=== PATIENT | female | born 1985 | race Caucasian/White ===

== ENCOUNTER 2018-08-01 18:14 | Inpatient (IN) | payer OTHER ==
[~2018-08-01] VITALS: Ht 172.7 cm; Wt 75.4 kg
[2018-08-01] MEDS ORDERED: ACETAMINOPHEN 325 MG TAB PO NR (18:35)
--- NOTE | 2018-08-01 18:56 | NUR ---
VERBAL REPORT GIVEN TO PADMINI SANTACRUZ.
[2018-08-01 19:00] LABS: BASOPHILS # (AUTO) 0.1 (0.0-0.1); BASOPHILS % 0.3 % (0.0-1.0); HEMATOCRIT 38.4 % (34.2-44.1); HEMOGLOBIN 12.3 g/dL (12.0-16.0); LYMPHOCYTES # (AUTO) 0.4 (1.0-3.2); LYMPHOCYTES % 2.6 % (18.0-39.1); MEAN CORPUSCULAR VOLUME 90.6 fL (81-99); MONOCYTES # (AUTO) 0.7 (0.2-0.8); MONOCYTES % 4.4 % (4.4-11.3); NEUTROPHILS # (AUTO) 14.4 (2.1-6.9); NEUTROPHILS % 92.3 % (38.7-80.0); PLATELET COUNT 247 x10e3/uL (140-360); RED BLOOD COUNT 4.24 x10e6/uL (3.6-5.1); RED CELL DISTRIBUTION WIDTH 12.3 % (11.7-14.4)
[2018-08-01 19:05] LABS: CLARITY,URINE CLEAR (CLEAR); COLOR,URINE YELLOW (YELLOW)
[2018-08-01 19:06] LABS: BILIRUBIN,URINE NEGATIVE (NEGATIVE); KETONES,URINE NEGATIVE (NEGATIVE); LEUKOCYTE ESTERASE ,URINE NEGATIVE (NEGATIVE); NITRITE,URINE NEGATIVE (NEGATIVE); PROTEIN,URINE DIPSTICK NEGATIVE (NEGATIVE); URINE UROBILINOGEN 0.2 mg/dL (0.2 - 1)
[2018-08-01 19:17] LABS: BACTERIA,URINE MODERATE /HPF; EPITHELIAL CELLS,URINE RARE /LPF; RBC,URINE 0-5 /HPF (0-5); WBC,URINE (MAN) 0-5 /HPF (0-5)
[2018-08-01 19:18] LABS: ALANINE AMINOTRANSFERASE 11 IU/L (0-55); ALBUMIN 3.9 g/dL (3.5-5.0); ALBUMIN/GLOBULIN RATIO 1.2 (0.8-2.0); ALKALINE PHOSPHATASE 89 IU/L (40-150); ANION GAP 15.6 mmol/L (8-16); BLOOD UREA NITROGEN 14 mg/dL (7-26); BUN/CREATININE RATIO 18 (6-25); CALCIUM 9.3 mg/dL (8.4-10.2); CARBON DIOXIDE 25 mmol/L (22-29); CHLORIDE 100 mmol/L (98-107); CREATININE, SERUM 0.77 mg/dL (0.57-1.11); EST GLOMERULAR FILTRATION RATE > 60 ML/MIN (60-); GLUCOSE 112 mg/dL (74-118); POTASSIUM 3.6 mmol/L (3.5-5.1); SODIUM 137 mmol/L (136-145)
[2018-08-01] MEDS ORDERED: SODIUM CHLORIDE 0.9% 1000ML 1,000 ML IV SCH (19:30)
--- NOTE | 2018-08-01 20:08 | Diagnostic Imaging Report ---
EXAMINATION: PA and lateral views of the chest. COMPARISON: None CLINICAL HISTORY: Chest pain, fever, cough, congestion, phlegm DISCUSSION: Lines/tubes: None. Lungs: Lungs are well-inflated. Right middle lobe airspace opacity, with silhouetting of the right heart border. Patchy opacity in the right infrahilar region best seen in the lateral view. Rest of the lungs is clear. Pleura: There is no pleural effusion or pneumothorax. Heart and mediastinum: Cardiomediastinal silhouette is unremarkable. Pulmonary vasculature is normal. Bones and soft tissues: No acute bony abnormalities. IMPRESSION: 1. Findings consistent with right middle lobe pneumonia, in the appropriate clinical setting. 2. Patchy opacity in the right infrahilar region may reflect pneumonia in the right lower lobe or atelectasis. Signed by: Dr. Mikhail Tamayo M.D. on 08/01/2018 8:05 PM
[2018-08-01] MEDS: SODIUM CHLORIDE 0.9% 1000ML 1,000 ML IV SCH (21:32)
[2018-08-01] MEDS: CEFTRIAXONE SOD 1 GM VIAL IV SCH (21:32)
[2018-08-01] MEDS: AZITHROMYCIN 500MG/NS 250 ML 250 ML IV SCH (21:32)
[2018-08-01] MEDS ORDERED: ONDANSETRON HCL INJ 2 MG/ML VIAL IV PRN (22:15)
--- OUTSIDE RECORDS SUMMARY | 2018-08-01 22:19 | XMS REPORT ---
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 Allergies, Adverse Reactions, Alerts This patient has no known allergies or adverse reactions. Medications This patient has no known medications. Results Test Description Test Time Test Comments Text Results Atomic Results Result Comments CHEST 2 VIEWS 2018-08-01 20:03:00 [place] [address] Patient Name: JORDAN CHUA MR #: [id number] : 1985 Age/Sex: 33/F Req #: [id number] Adm Physician: Ordered by: EULALIO GARCIA MD Report #: [id number] Location: ER Room/Bed: Procedure: [id number] DX/CHEST 2 VIEWS Exam Date: Exam Time: REPORT STATUS: Signed EXAMINATION: PA and lateral views of the chest. COMPARISON: None CLINICAL HISTORY: Chest pain, fever, cough, congestion, phlegm DISCUSSION: Lines/tubes: None. Lungs: Lungs are well-inflated. Right middle lobe airspace opacity, with silhouetting of the right heart border. Patchy opacity in the right infrahilar region best seen in the lateral view. Rest of the lungs is clear. Pleura: There is no pleural effusion or pneum othorax. Heart and mediastinum: Cardiomediastinal silhouette is unremarkable. Pulmonary vasculature is normal. Bones and soft tissues: No acute bony abnormalities. IMPRESSION: 1. Findings consistent with right middle lobe pneumonia, in the appropriate clinical setting. 2. Patchy opacity in the right infrahilar region may reflect pneumonia in the right lower lobe or atelectasis. Signed by: Dr. Shu Tamayo M.D. on 08/01/2018 8:05 PM Dictated By: SHU TAMAYO MD 04 Transcribed By: LUZ ELENA on 08/01/182004 COPY TO: EULALIO GARCIA MD
[2018-08-01 22:45] VITALS: BP 117/72
--- NOTE | 2018-08-01 22:50 | NUR ---
received pt from the ER to room 294, AAOx4, able to verbalize needs, pt noted with productive cough, phlegm light green in color and thin, resp are even and unlabored, no c/o pain or discomfort, iv to left ac patent and intact with NS @125, skin intact, ambulates by self with steady gait, at the bedside, bed in lowest position and call light in reach, instructed pt to call if assistance is needed
[2018-08-01] MEDS: ALBUTEROL SULF 0.083% NEB SOLN 3 ML NEB NEB SCH (23:30)
[2018-08-02] VITALS: BP 117/72
[2018-08-02] MEDS: SODIUM CHLORIDE 0.9% 1000ML 1,000 ML IV SCH ×2 (02:13→10:10)
[2018-08-02] MEDS: IPRATROPIUM BROMIDE 0.02% 2.5 ML NEB NEB SCH ×2 (02:30→07:00)
[2018-08-02] MEDS: ALBUTEROL SULF 0.083% NEB SOLN 3 ML NEB NEB SCH ×2 (02:30→07:00)
[2018-08-02 04:00] VITALS: BP 105/59
[2018-08-02] MEDS: ACETAMINOPHEN 325 MG TAB PO PRN ×3 (05:15→22:07)
[2018-08-02 05:45] LABS: BASOPHILS % 0.3 % (0.0-1.0); HEMATOCRIT 32.5 % (34.2-44.1); HEMOGLOBIN 10.5 g/dL (12.0-16.0); LYMPHOCYTES % 11.3 % (18.0-39.1); MEAN CORPUSCULAR HEMOGLOBIN 29.8 pg (28-32); MEAN CORPUSCULAR HGB CONC 32.3 g/dL (31-35); MEAN CORPUSCULAR VOLUME 92.3 fL (81-99); MONOCYTES # (AUTO) 0.8 (0.2-0.8); MONOCYTES % 8.3 % (4.4-11.3); NEUTROPHILS # (AUTO) 7.3 (2.1-6.9); NEUTROPHILS % 79.7 % (38.7-80.0); PLATELET COUNT 207 x10e3/uL (140-360); RED BLOOD COUNT 3.52 x10e6/uL (3.6-5.1); RED CELL DISTRIBUTION WIDTH 12.4 % (11.7-14.4)
[2018-08-02 05:58] LABS: ALANINE AMINOTRANSFERASE 8 IU/L (0-55); ALBUMIN 2.9 g/dL (3.5-5.0); ALKALINE PHOSPHATASE 68 IU/L (40-150); ANION GAP 12.7 mmol/L (8-16); BLOOD UREA NITROGEN 10 mg/dL (7-26); BUN/CREATININE RATIO 15 (6-25); CALCIUM 8.5 mg/dL (8.4-10.2); CARBON DIOXIDE 25 mmol/L (22-29); CHLORIDE 107 mmol/L (98-107); CREATININE, SERUM 0.68 mg/dL (0.57-1.11); EST GLOMERULAR FILTRATION RATE > 60 ML/MIN (60-); GLUCOSE 84 mg/dL (74-118); POTASSIUM 3.7 mmol/L (3.5-5.1); SODIUM 141 mmol/L (136-145)
[2018-08-02 06:50] LABS: CREATINE KINASE MB 0.5 ng/mL (0-5.0)
--- NOTE | 2018-08-02 07:30 | NUR ---
PT UP IN BED AWAKE,PAIN LEVEL 3 TO LT SIDE,NO SOB NOTED.
[2018-08-02 08:59] VITALS: BP 114/76
[2018-08-02 12:00] VITALS: BP 117/80
--- NOTE | 2018-08-02 15:35 | NUR ---
PT UP IN [place] AMBULATING,TOLERATED WELL.PAIN LEVEL 4 TO LT SIDE
[2018-08-02 15:38] LABS: CREATINE KINASE MB 0.5 ng/mL (0-5.0)
--- NOTE | 2018-08-02 18:02 | NUR ---
PT IN BED RESTING ,NO S/S DISCOMFORT.
[2018-08-02 20:00] VITALS: BP 104/67
[2018-08-02] MEDS: AZITHROMYCIN 500MG/NS 250 ML 250 ML IV SCH (20:44)
[2018-08-02] MEDS: CEFTRIAXONE SOD 1 GM VIAL IV SCH (20:44)
[2018-08-02] MEDS: ALBUTEROL SULF 0.083% NEB SOLN 3 ML NEB NEB PRN (21:00)
[2018-08-03] VITALS: BP 106/55
[2018-08-03 04:00] VITALS: BP 114/63
[2018-08-03 06:01] LABS: BASOPHILS % 0.6 % (0.0-1.0); EOSINOPHILS # (AUTO) 0.1 (0.0-0.4); EOSINOPHILS % 1.5 % (0.0-6.0); HEMATOCRIT 32.3 % (34.2-44.1); HEMOGLOBIN 10.4 g/dL (12.0-16.0); LYMPHOCYTES # (AUTO) 1.2 (1.0-3.2); LYMPHOCYTES % 24.8 % (18.0-39.1); MEAN CORPUSCULAR HEMOGLOBIN 30.7 pg (28-32); MEAN CORPUSCULAR HGB CONC 32.2 g/dL (31-35); MEAN CORPUSCULAR VOLUME 95.3 fL (81-99); MONOCYTES # (AUTO) 0.4 (0.2-0.8); MONOCYTES % 7.3 % (4.4-11.3); NEUTROPHILS # (AUTO) 3.1 (2.1-6.9); NEUTROPHILS % 65.4 % (38.7-80.0); PLATELET COUNT 211 x10e3/uL (140-360); RED BLOOD COUNT 3.39 x10e6/uL (3.6-5.1); RED CELL DISTRIBUTION WIDTH 12.4 % (11.7-14.4)
[2018-08-03 06:02] LABS: ANION GAP 12.2 mmol/L (8-16); BLOOD UREA NITROGEN 8 mg/dL (7-26); BUN/CREATININE RATIO 12 (6-25); CARBON DIOXIDE 28 mmol/L (22-29); CHLORIDE 107 mmol/L (98-107); CREATININE, SERUM 0.66 mg/dL (0.57-1.11); EST GLOMERULAR FILTRATION RATE > 60 ML/MIN (60-); GLUCOSE 81 mg/dL (74-118); POTASSIUM 4.2 mmol/L (3.5-5.1); SODIUM 143 mmol/L (136-145)
[2018-08-03] MEDS: ACETAMINOPHEN 325 MG TAB PO PRN (06:41)
--- NOTE | 2018-08-03 07:25 | NUR ---
RECD PT IN BED RESTING C/O LT SIDE PAIN LEVEL 6 ,PAGED DR CARRENO,RE; PAIN MEDICATION.
[2018-08-03] MEDS: ALBUTEROL SULF 0.083% NEB SOLN 3 ML NEB NEB PRN ×2 (08:00→19:15)
[2018-08-03 08:04] VITALS: BP 123/74
--- NOTE | 2018-08-03 08:15 | NUR ---
DR CARRENO HERE ORDERS WRITTEN.
[2018-08-03] MEDS ORDERED: SODIUM CHLORIDE FLUSH 10 ML SYR INJ PRN (09:45)
[2018-08-03] MEDS: IBUPROFEN 600 MG TAB PO PRN ×2 (10:00→18:12)
--- NOTE | 2018-08-03 10:00 | NUR ---
PT C/O PAIN LEVEL 6 TO LT RIBS MEDICATED
[2018-08-03 12:22] VITALS: BP 116/75
[2018-08-03 16:18] VITALS: BP 107/64
--- NOTE | 2018-08-03 17:33 | NUR ---
UNABLE TO DO BARIUM SWALLOW ,FLURO DOWN.PAGED DR CARRENO
--- NOTE | 2018-08-03 18:13 | NUR ---
PT UP IN BED C/O LT SIDE PAIN MEDICATED
--- NOTE | 2018-08-03 18:24 | NUR ---
SPOKE WITH DR CARRENO NO NEW ORDERS
[2018-08-03 20:00] VITALS: BP 126/73
[2018-08-03] MEDS: CEFTRIAXONE SOD 1 GM VIAL IV SCH (20:47)
[2018-08-03] MEDS: AZITHROMYCIN 500MG/NS 250 ML 250 ML IV SCH (20:47)
[2018-08-04 04:00] VITALS: BP 134/67
--- NOTE | 2018-08-04 06:21 | Diagnostic Imaging Report ---
EXAM: CHEST 2 VIEWS, PA and lateral INDICATION: Pneumonia COMPARISON: PA and lateral view the chest August 01, 2018 FINDINGS: LINES/TUBES: None LUNGS: Improving right middle lobe pneumonia. PLEURA: No effusions or pneumothorax. HEART AND MEDIASTINUM: Normal size and contour. BONES AND SOFT TISSUES: No acute findings. IMPRESSION: Improving right middle lobe pneumonia. Signed by: Dr. Fariha Trivedi M.D. on 08/04/2018 6:18 AM
[2018-08-04] MEDS ORDERED: PANTOPRAZOLE SOD 40 MG TABEC PO SCH (07:30)
[2018-08-04 07:52] VITALS: BP 104/61
--- NOTE | 2018-08-04 08:33 | NUR ---
PATIENT OFF OF THE UNIT PER WHEELCHAIR TO RADIOLOGY. PATIENT IS IN STABLE CONDITION WITH NO S/S OF RESPIRATORY DISTRESS.
--- NOTE | 2018-08-04 09:09 | NUR ---
PATIENT BACK ON THE UNIT PER WHEELCHAIR- PATIENT IS IN STABLE CONDITION WITH NO S/S OF RESPIRATORY DISTRESS AND IS ABLE TO EAT NOW.
[2018-08-04] MEDS ORDERED: CEFUROXIME250 MG PO (10:00)
[2018-08-04] MEDS ORDERED: PANTOPRAZOLE SO40 MG PO (10:01)
--- NOTE | 2018-08-04 10:51 | Diagnostic Imaging Report ---
PROCEDURE: BARIUM SWALLOW was performed with Sodium Carbonate and thick and thin barium. TECHNIQUE: OPERATORS: COMPARISON: Chest radiograph 08/04/2018. INDICATIONS: Not provided. FINDINGS: Swallow: The swallowing mechanism was grossly normal without evidence of aspiration. The esophagus was normally distensible and the mucosa was within normal limits. Esophageal motility was within normal limits. Gastroesophageal junction: There is no evidence of hiatal hernia. Reflux: Moderate inducible gastroesophageal reflux to the level of the mid esophagus. The visualized portion of the stomach and proximal small bowel are unremarkable. IMPRESSION: The swallowing mechanism was grossly normal. Normal appearance of the esophagus. Moderate inducible gastroesophageal reflux. Dictated by: CORDELIA LEONE M.D. on 08/04/2018 at 10:59 Electronically approved by: CORDELIA LEONE M.D. on 08/04/2018 at 10:59
[2018-08-04 11:22] VITALS: BP 108/64
[2018-08-04 16:00] VITALS: BP 103/76
--- NOTE | 2018-08-04 16:03 | Discharge Summary ---
DISCHARGE DIAGNOSES 1. Community-acquired pneumonia, improving. 2. Gastroesophageal reflux disease. Ms. Donahue is a very pleasant, 33-year-old lady who presented to the emergency department with complaints of a 2 to 3 week history of an upper respiratory infection that initially improved but then again worsened with intermittent cough and fever and on the day of admission shaking chills and temperature up to 103 degrees. The patient does not have any history of smoking and no history of asthma, but she has reflux symptoms. At the time of admission, she presented with a white cell count of 15,000 with a left shift, and the chest x-ray was consistent with a right middle lobe infiltrate. She was treated with a combination of ceftriaxone and azithromycin. With this combination, she became afebrile. The white count has normalized. Due to significant symptoms of gastroesophageal reflux disease, a barium swallow was requested. There is evidence of some reflux. She was started on a PPI. The patient has improved. She is tolerating the oral route. She is being discharged home in stable condition with prescription for cefuroxime axetil to take 250 mg twice a day for the next 10 days and a prescription for pantoprazole 40 mg daily in the morning. She is to follow up in the office 1 week after discharge. SATHISH CARRENO MD Job#: [id number]
--- NOTE | 2018-08-04 18:10 | NUR ---
PATIENT DISCHARGE HOME- PATIENT OFF THE UNIT AT 1751 PER WHEELCHAIR ACCOMPANIED BY RN TO THE FRONT LOBBY. PATIENT IS IN STABLE CONDITION WITH NO S/S OF RESPIRATORY DISTRESS. NO PAIN VOICED. IV REMOVED AT 1719 WITH TIP INTACT. DISCHARGE TEACHING, INSTRUCTIONS, AND MEDICATIONS GIVEN TO THE PATIENT. ALL PERSONAL ITEMS TAKEN WITH THE PATIENT AND HER MOTHER.
== END 2018-08-04 17:56 | disposition home or self-care (01) | DRG 194 ==
LOC: ER 18:14 → ERHOLD 22:17 → MED/SURG3 22:41
PROVIDERS: ADMIT Internal Medicine; ATTEND Internal Medicine
DX: J18.9 Pneumonia, unspecified organism (principal); N39.0 Urinary tract infection, site not specified; D72.829 Elevated white blood cell count, unspecified; I25.10 Atherosclerotic heart disease of native coronary artery without angina pectoris; K21.9 Gastro-esophageal reflux disease without esophagitis; J69.0 Pneumonitis due to inhalation of food and vomit; T18.120A Food in esophagus causing compression of trachea, initial encounter
CPT/HCPCS: 36415; 71046; 74220; 80048; 80053; 81001; 82550; 82553; 83605; 84484; 84702; 85025; 87040; 87086; 87400; 93005; 94640; 96374; 99284; J0456; J0696; J7030

== ENCOUNTER 2018-08-20 11:12 | Inpatient (IN) | payer OTHER ==
[~2018-08-20] VITALS: Ht 172.7 cm; Wt 73.1 kg
[~2018-08-20 11:12] MED LIST: CEFUROXIME250 MG PO; PANTOPRAZOLE SO40 MG PO
[2018-08-20] MEDS ORDERED: MORPHINE SULFATE INJ 4 MG/ML INJ IV NR (14:31)
[2018-08-20] MEDS ORDERED: SODIUM CHLORIDE 0.9% 1000ML 1,000 ML IV STA (14:31)
[2018-08-20] MEDS ORDERED: ONDANSETRON HCL INJ 2 MG/ML VIAL IV NR ×2 (14:31→17:49)
[2018-08-20 14:39] LABS: BASOPHILS # (AUTO) 0.1 (0.0-0.1); BASOPHILS % 0.4 % (0.0-1.0); EOSINOPHILS # (AUTO) 0.1 (0.0-0.4); EOSINOPHILS % 1.2 % (0.0-6.0); HEMATOCRIT 43.8 % (34.2-44.1); LYMPHOCYTES # (AUTO) 0.7 (1.0-3.2); LYMPHOCYTES % 6.3 % (18.0-39.1); MEAN CORPUSCULAR HEMOGLOBIN 28.7 pg (28-32); MEAN CORPUSCULAR VOLUME 89.9 fL (81-99); MONOCYTES # (AUTO) 0.7 (0.2-0.8); MONOCYTES % 6.1 % (4.4-11.3); NEUTROPHILS # (AUTO) 10.1 (2.1-6.9); NEUTROPHILS % 85.7 % (38.7-80.0); PLATELET COUNT 333 x10e3/uL (140-360); RED BLOOD COUNT 4.87 x10e6/uL (3.6-5.1); RED CELL DISTRIBUTION WIDTH 12.2 % (11.7-14.4)
[2018-08-20 14:44] LABS: INR 0.95; PARTIAL THROMBOPLASTIN TIME 28.1 seconds (23.8-35.5); PROTHROMBIN TIME 13.5 seconds (11.9-14.5)
[2018-08-20 14:54] LABS: ALANINE AMINOTRANSFERASE 22 IU/L (0-55); ALBUMIN 3.7 g/dL (3.5-5.0); ALKALINE PHOSPHATASE 104 IU/L (40-150); AMYLASE 64 U/L (25-125); ANION GAP 19.9 mmol/L (8-16); BLOOD UREA NITROGEN < 5 mg/dL (7-26); CALCIUM 8.3 mg/dL (8.4-10.2); CARBON DIOXIDE 23 mmol/L (22-29); CHLORIDE 99 mmol/L (98-107); CREATININE, SERUM 0.71 mg/dL (0.57-1.11); EST GLOMERULAR FILTRATION RATE > 60 ML/MIN (60-); GLUCOSE 90 mg/dL (74-118); LIPASE 11 U/L (8-78); POTASSIUM 3.9 mmol/L (3.5-5.1); SODIUM 138 mmol/L (136-145)
[2018-08-20 14:58] LABS: BUN/CREATININE RATIO 7 (6-25)
[2018-08-20] MEDS ORDERED: DIATRIZOATE MEGL/DIATRIZOA SOD 30 ML BTL PO ONE (15:06)
[2018-08-20 15:13] LABS: BILIRUBIN,URINE NEGATIVE (NEGATIVE); KETONES,URINE TRACE (NEGATIVE); LEUKOCYTE ESTERASE ,URINE NEGATIVE (NEGATIVE); NITRITE,URINE NEGATIVE (NEGATIVE); PROTEIN,URINE DIPSTICK NEGATIVE (NEGATIVE); URINE UROBILINOGEN 0.2 mg/dL (0.2 - 1)
[2018-08-20 15:18] LABS: CLARITY,URINE CLEAR (CLEAR); COLOR,URINE YELLOW (YELLOW); EPITHELIAL CELLS,URINE RARE /LPF; RBC,URINE 0-5 /HPF (0-5); WBC,URINE (MAN) 0-5 /HPF (0-5)
[2018-08-20] MEDS ORDERED: ACETAMINOPHEN 1000 MG/100 ML IV NR (15:45)
[2018-08-20] MEDS ORDERED: IOPAMIDOL 370 MG/ML 200 ML INFUS..BTL INJ ONE (16:47)
[2018-08-20] MEDS ORDERED: SODIUM CHLORIDE 0.9% 50ML 50 ML ONE (16:47)
--- NOTE | 2018-08-20 17:06 | Diagnostic Imaging Report ---
CT Abdomen And Pelvis with Intravenous Contrast INDICATION: Abdominal pain, nausea, vomiting, diarrhea TECHNIQUE: Thin collimation axial images obtained from the diaphragm to the level of the pubic symphysis following the uneventful administration of oral and of 100 cc of low osmolar, nonionic intravenous contrast. Dose reduction techniques used: Automated exposure control, adjustment of the mAs and/or kVp according to patient size, standardized low-dose protocol, and/or iterative reconstruction technique. RADIATION DOSE: Total DLP: 354.9 mGy*cm Estimated effective dose: (DLP x 0.015 x size factor) mSv CTDIvol has been reviewed. It is below the limits set by the Radiation Protocol Committee (RPC). COMPARISON: None. ABDOMEN FINDINGS: Lung Bases: Small focus of subsegmental atelectasis at the apex of the middle lobe. Visualized portion of the mediastinum is normal. Liver: Low attenuating lesion in segment 2 measures 1.7 x 2.0 cm with peripheral, discontinuous, nodular enhancement. A 5 mm low attenuating lesion in segment 2 is too small to characterize. A subcapsular low attenuating lesion in segment 4 is from a slip of diaphragm. Gallbladder: Present and appears normal. No biliary ductal dilatation. Pancreas: Normal attenuation without mass or ductal dilatation. Spleen: Normal in size. No evidence of mass.. Adrenal Glands: No evidence for mass. Kidneys: Right: Normal enhancement. No soft tissue mass. No hydronephrosis. Left: Normal enhancement. No soft tissue mass. No hydronephrosis. Lymph Nodes: No enlarged abdominal or retroperitoneal lymph nodes. Aorta: Normal in diameter PELVIS FINDINGS: Bowel: Stomach: Normal in caliber with normal wall thickness. Small Bowel: Normal in caliber with normal wall thickness. Large Bowel: Diffuse mural thickening of the entire colon and pericolonic inflammation. No dilatation. No diverticula. No intramural air Appendix: Collapsed and normal in appearance. Bladder: Underdistended but otherwise normal. The uterus contains an intrauterine device in appropriate position. No adnexal mass. Small amount of pelvic ascites. No loculated fluid collection. Bones: Unremarkable for age. Soft tissues: Unremarkable. IMPRESSION: 1. Diffuse colonic thickening consistent with colitis. No evidence of bowel obstruction. 2. Small amount of pelvic ascites. No abscess. 3. Dominant low attenuating hepatic lesion is suggestive of hemangioma. 4. IUD in appropriate position. Signed by: Dr. Scout Fox MD on 08/20/2018 5:03 PM
[2018-08-20] MEDS: SODIUM CHLORIDE 0.9% 1000ML 1,000 ML IV SCH (18:44)
[2018-08-20] MEDS: METRONIDAZOLE 500MG/NS 100ML 100 ML IV SCH ×2 (18:45→23:13)
[2018-08-20] MEDS ORDERED: PROMETHAZINE HCL (IM) 25 MG/ML VIAL IV PRN (19:15)
[2018-08-20] MEDS ORDERED: D5.45%NS/KCL 20MEQ 1,000 ML IV ONE (19:15)
[2018-08-20] MEDS ORDERED: MORPHINE SULFATE INJ 4 MG/ML INJ IV PRN (19:30)
[2018-08-20] MEDS: VANCOMYCIN 250MG/5ML ORAL SOLN PO SCH ×2 (20:30→23:13)
[2018-08-20] MEDS: ONDANSETRON HCL INJ 2 MG/ML VIAL IV PRN (20:43)
[2018-08-20] MEDS: MORPHINE SULFATE INJ 4 MG/ML INJ IV NR ×2 (20:43→20:45)
[2018-08-20 22:21] VITALS: BP 112/64
[2018-08-20 22:24] VITALS: BP 112/64
[2018-08-20 22:29] VITALS: BP 112/64
[2018-08-21] VITALS (8 sets, daily range): BP systolic 98–148; BP diastolic 57–78
[2018-08-21] MEDS: MORPHINE SULFATE INJ 4 MG/ML INJ IV PRN ×2 (01:29→09:47)
[2018-08-21] MEDS: ONDANSETRON HCL INJ 2 MG/ML VIAL IV PRN (01:30)
[2018-08-21 04:54] LABS: BASOPHILS # (AUTO) 0.1 (0.0-0.1); BASOPHILS % 0.9 % (0.0-1.0); EOSINOPHILS # (AUTO) 0.6 (0.0-0.4); EOSINOPHILS % 7.4 % (0.0-6.0); HEMATOCRIT 35.8 % (34.2-44.1); HEMOGLOBIN 11.3 g/dL (12.0-16.0); LYMPHOCYTES # (AUTO) 1.2 (1.0-3.2); MEAN CORPUSCULAR HEMOGLOBIN 28.5 pg (28-32); MEAN CORPUSCULAR HGB CONC 31.6 g/dL (31-35); MEAN CORPUSCULAR VOLUME 90.4 fL (81-99); MONOCYTES # (AUTO) 0.7 (0.2-0.8); MONOCYTES % 8.2 % (4.4-11.3); NEUTROPHILS # (AUTO) 5.4 (2.1-6.9); NEUTROPHILS % 68.2 % (38.7-80.0); PLATELET COUNT 266 x10e3/uL (140-360); RED BLOOD COUNT 3.96 x10e6/uL (3.6-5.1); RED CELL DISTRIBUTION WIDTH 12.4 % (11.7-14.4)
[2018-08-21 05:13] LABS: ANION GAP 14.5 mmol/L (8-16); BLOOD UREA NITROGEN 6 mg/dL (7-26); BUN/CREATININE RATIO 8 (6-25); CALCIUM 8.3 mg/dL (8.4-10.2); CARBON DIOXIDE 24 mmol/L (22-29); CHLORIDE 104 mmol/L (98-107); CREATININE, SERUM 0.77 mg/dL (0.57-1.11); EST GLOMERULAR FILTRATION RATE > 60 ML/MIN (60-); GLUCOSE 98 mg/dL (74-118); POTASSIUM 3.5 mmol/L (3.5-5.1); SODIUM 139 mmol/L (136-145)
[2018-08-21] MEDS: METRONIDAZOLE 500MG/NS 100ML 100 ML IV SCH ×3 (05:18→21:19)
[2018-08-21] MEDS: SODIUM CHLORIDE 0.9% 1000ML 1,000 ML IV SCH ×3 (05:18→21:19)
[2018-08-21] MEDS: VANCOMYCIN 250MG/5ML ORAL SOLN PO SCH ×3 (05:19→17:36)
[2018-08-21] MEDS ORDERED: HYDROCODONE/APAP 5MG-325MG TAB PO PRN (10:15)
[2018-08-21] MEDS ORDERED: INFLUENZA VIRUS VAC SPLIT INJ 0.5 ML SYR IM SCH (16:00)
[2018-08-21] MEDS ORDERED: ACETAMINOPHEN 325 MG TAB PO PRN (23:30)
[2018-08-22] VITALS (8 sets, daily range): BP systolic 88–114; BP diastolic 59–83
[2018-08-22 04:53] LABS: BASOPHILS # (AUTO) 0.1 (0.0-0.1); BASOPHILS % 0.9 % (0.0-1.0); EOSINOPHILS # (AUTO) 0.6 (0.0-0.4); EOSINOPHILS % 9.2 % (0.0-6.0); HEMATOCRIT 41.2 % (34.2-44.1); HEMOGLOBIN 12.6 g/dL (12.0-16.0); LYMPHOCYTES # (AUTO) 1.3 (1.0-3.2); MEAN CORPUSCULAR HEMOGLOBIN 28.1 pg (28-32); MEAN CORPUSCULAR HGB CONC 30.6 g/dL (31-35); MEAN CORPUSCULAR VOLUME 91.8 fL (81-99); MONOCYTES # (AUTO) 0.5 (0.2-0.8); NEUTROPHILS # (AUTO) 4.4 (2.1-6.9); NEUTROPHILS % 63.6 % (38.7-80.0); PLATELET COUNT 271 x10e3/uL (140-360); RED BLOOD COUNT 4.49 x10e6/uL (3.6-5.1); RED CELL DISTRIBUTION WIDTH 12.2 % (11.7-14.4)
[2018-08-22 05:12] LABS: ANION GAP 11.7 mmol/L (8-16); BLOOD UREA NITROGEN 5 mg/dL (7-26); BUN/CREATININE RATIO 7 (6-25); CALCIUM 8.9 mg/dL (8.4-10.2); CARBON DIOXIDE 27 mmol/L (22-29); CHLORIDE 105 mmol/L (98-107); CREATININE, SERUM 0.68 mg/dL (0.57-1.11); EST GLOMERULAR FILTRATION RATE > 60 ML/MIN (60-); GLUCOSE 77 mg/dL (74-118); POTASSIUM 3.7 mmol/L (3.5-5.1); SODIUM 140 mmol/L (136-145)
[2018-08-22] MEDS: METRONIDAZOLE 500MG/NS 100ML 100 ML IV SCH ×3 (05:52→22:00)
[2018-08-22] MEDS: VANCOMYCIN 250MG/5ML ORAL SOLN PO SCH ×4 (05:52→17:14)
[2018-08-22] MEDS: SODIUM CHLORIDE 0.9% 1000ML 1,000 ML IV SCH ×2 (05:52→15:49)
[2018-08-23] VITALS (8 sets, daily range): BP systolic 97–118; BP diastolic 53–81
[2018-08-23] MEDS: SODIUM CHLORIDE 0.9% 1000ML 1,000 ML IV SCH ×2 (06:01→13:58)
[2018-08-23] MEDS: VANCOMYCIN 250MG/5ML ORAL SOLN PO SCH ×4 (06:46→17:40)
[2018-08-23] MEDS: METRONIDAZOLE 500MG/NS 100ML 100 ML IV SCH ×3 (06:46→22:41)
[2018-08-23] MEDS ORDERED: CITRATE OF MAGNESIA 300ML BOTTLE PO ONE ×2 (09:45→11:15)
[2018-08-23] MEDS ORDERED: PANTOPRAZOLE 40 MG 10ML VIAL IV ONE (09:45)
[2018-08-23] MEDS: PANTOPRAZOLE 40 MG 10ML VIAL IV SCH (12:07)
[2018-08-23 18:58] LABS: WBC,FECAL (FECAL LACTOFERRIN) POSITIVE (NEGATIVE)
[2018-08-23] MEDS ORDERED: KETAMINE HCL INJ 50 MG/ML 10 ML VIAL ONE (19:10)
[2018-08-23] MEDS ORDERED: MIDAZOLAM HCL 5MG/ML 2ML VIAL ONE (19:10)
[2018-08-23] MEDS ORDERED: FENTANYL CITRATE/PF 100MCG/2 ML INJ ONE (19:10)
[2018-08-23] MEDS ORDERED: PROPOFOL IV EMULSION 10 MG/ML 20 ML VIAL ONE (19:39)
[2018-08-23] MEDS ORDERED: LIDOCAINE HCL 2% LOCAL INJ 5 ML SDV VIAL INJ ONE (19:39)
[2018-08-24 00:12] VITALS: BP 100/60
[2018-08-24] MEDS: PANTOPRAZOLE 40 MG 10ML VIAL IV SCH ×2 (00:32→11:16)
[2018-08-24] MEDS: VANCOMYCIN 250MG/5ML ORAL SOLN PO SCH ×3 (00:32→11:16)
[2018-08-24] MEDS: METRONIDAZOLE 500MG/NS 100ML 100 ML IV SCH ×2 (05:33→11:17)
--- NOTE | 2018-08-24 05:53 | Operative Report ---
DATE OF PROCEDURE: August 23, 2018 REFERRING PHYSICIAN: Dr. Reggie Bhandari. PROCEDURES PERFORMED 1. Esophagogastroduodenoscopy with biopsy. 2. Colonoscopy with biopsy. INDICATIONS FOR ESOPHAGOGASTRODUODENOSCOPY: Acid reflux. INDICATIONS FOR COLONOSCOPY: Diarrhea, colitis per CT scan. MEDICATION: Patient was done under MAC. Please see anesthesiologist's note. ESOPHAGOGASTRODUODENOSCOPY: With the patient in the lateral decubitus position, flexible fiberoptic Olympus gastroscope was introduced into the esophagus under direct visualization without any difficulty. There was some patchy erythema noted in distal esophagus. Some focal nodularity was noted at the GE junction that was biopsied. The scope was then advanced with ease into her stomach and mucosa overlying the antrum and the body revealed some diffuse erythema and low-grade to moderate edema and biopsies were obtained and sent to stain for H. pylori. Pylorus appeared to be of normal contour and shape, was intubated with ease and the scope was advanced all the way to the second portion of the duodenum. Biopsies were obtained from proximal second portion of the duodenum bulb to rule out sprue. The scope was then withdrawn back into the stomach and retroflexed, the mucosa overlying the fundus and cardia appeared to be within normal limits. The scope was then straightened out and was subsequently withdrawn. Patient tolerated the procedure well. IMPRESSION 1. Distal esophagitis, mild. 2. Focal nodularity, GE junction, biopsied. 3. Gastritis biopsied. Biopsies sent stain for H. pylori. 4. Rule out sprue. PLAN: Follow up histology. Initiate Protonix 40 mg 1 p.o. q.a am a.c. COLONOSCOPY: Patient was then turned around. After adequate lubrication of the anal canal, a flexible fiberoptic Olympus colonoscope was inserted into the rectum with ease and advanced all the way to the cecum. There were some ulcers noted in the cecum. The ileocecal valve was intubated and the scope was advanced into the terminal ileum grossly. The terminal ileum appeared be within normal limits. Biopsies were obtained. The scope was then withdrawn back into the colon and scattered ulcerations were noted throughout and random biopsies were obtained. The scope was then retroflexed into the distal rectum and the area around the dentate line appeared to be within normal limits. The scope was then straightened out. The scope was subsequently withdrawn after securing an adequate stool specimen that was sent for the appropriate stool studies. Patient tolerated the procedure well. IMPRESSION: Ulcerative colitis, suspicious for a C.diff. Random biopsies obtained. PLAN 1. Follow up histology. 2. Follow up stool studies. 3. Continue vancomycin 250 mg 1 p.o. q.i.d. Job#: [id number] RTY cc:Reggie Bhandari MD
[2018-08-24 06:21] VITALS: BP 103/58
[2018-08-24 08:05] VITALS: BP 103/58
[2018-08-24] MEDS: SODIUM CHLORIDE 0.9% 1000ML 1,000 ML IV SCH (08:05)
[2018-08-24 08:39] VITALS: BP 104/58
[2018-08-24 11:51] LABS: C DIFFICILE TOXIN A&B AMP PROB NEGATIVE (NEGATIVE)
[2018-08-24] MEDS ORDERED: DIPHENOXYLATE/ATROPINE TAB PO SCH (12:00)
[2018-08-24 12:33] VITALS: BP 114/66
[2018-08-24] MEDS ORDERED: FLAGYL250 MG PO (14:02)
[2018-08-24] MEDS ORDERED: VANCOMYCIN HCL1 GM IV (14:03)
[2018-08-24] MEDS ORDERED: VANCOMYCIN HCL500 MG PO (14:03)
[2018-08-24] MEDS ORDERED: BENTYL10 MG/1 ML PO (14:04)
[2018-08-24] MEDS ORDERED: PEPCID20 MG PO (14:05)
== END 2018-08-24 16:19 | disposition home or self-care (01) | DRG 386 ==
LOC: ER 11:12 → ERHOLD 19:10 → MED/SURG2 21:36
PROVIDERS: ADMIT Internal Medicine; ATTEND Internal Medicine
PROC: 0DBB8ZX Excision of Ileum, Via Natural or Artificial Opening Endoscopic, Diagnostic (ICD-10-PCS; 2018-08-23)
PROC: 0DBE8ZX Excision of Large Intestine, Via Natural or Artificial Opening Endoscopic, Diagnostic (ICD-10-PCS; 2018-08-23)
PROC: 0DB98ZX Excision of Duodenum, Via Natural or Artificial Opening Endoscopic, Diagnostic (ICD-10-PCS; 2018-08-23)
PROC: 0DB48ZX Excision of Esophagogastric Junction, Via Natural or Artificial Opening Endoscopic, Diagnostic (ICD-10-PCS; principal; 2018-08-23 17:39)
PROC: 0DB78ZX Excision of Stomach, Pylorus, Via Natural or Artificial Opening Endoscopic, Diagnostic (ICD-10-PCS; 2018-08-23 17:39)
DX: K51.90 Ulcerative colitis, unspecified, without complications (principal); K63.3 Ulcer of intestine; E86.0 Dehydration; K21.9 Gastro-esophageal reflux disease without esophagitis; K20.9 Esophagitis, unspecified
CPT/HCPCS: 36415; 43239; 45380; 74177; 80048; 80053; 80202; 81001; 82150; 82270; 82948; 83605; 83630; 83690; 83735; 83993; 84702; 85025; 85610; 85730; 87045; 87086; 87177; 87328; 87493; 88305; 88312; 96361; 99284; J2001; J2250; J2270; J2405; J7030; Q9967